=== PATIENT | female | born 1980 | race Caucasian/White ===

== ENCOUNTER 2023-01-15 20:01 | Emergency (ER) | payer SELFPAY ==
[~2023-01-15] VITALS: Ht 172.7 cm; Wt 83.0 kg
[2023-01-15] MEDS ORDERED: LIDOCAINE HCL 1% 20ML VIAL (Pyxis) INJ INFIL ONE (21:00)
[2023-01-15] MEDS ORDERED: TETANUS, DIPHTHERIA, PERTUSSIS VAC/PF 0.5ML (>10YR OLD) IM ONE (21:00)
[2023-01-15] MEDS ORDERED: IBUPROFEN 600MG TABLET PO ONE (22:15)
[2023-01-15 22:27] VITALS: BP 181/106
[2023-01-15] MEDS ORDERED: IBUP-2029 PO (22:30)
== END 2023-01-15 22:30 | disposition home or self-care (01) ==
LOC: ER 20:01
DX: S61.213A Laceration without foreign body of left middle finger without damage to nail, initial encounter (principal); W22.8XXA Striking against or struck by other objects, initial encounter; Y93.89 Activity, other specified; Y92.89 Other specified places as the place of occurrence of the external cause; Y99.8 Other external cause status
CPT/HCPCS: 12002; 90471; 90715; 99283; Z7610

== ENCOUNTER 2023-05-25 23:09 | Emergency (ER) | payer MEDICAID ==
[~2023-05-25] VITALS: Ht 177.8 cm; Wt 69.0 kg
[~2023-05-25 23:09] MED LIST: IBUP-2029 PO
[2023-05-25 23:19] VITALS: TEMP 97.7; O2SAT 97
[2023-05-26] VITALS: BP 109/70; PULSE 70; RESP 18
[2023-05-26] MEDS ORDERED: HYDROCODONE/ACETAMINOPHEN 5/325MG TABLET PO ONE
== END 2023-05-26 00:10 | disposition home or self-care (01) ==
LOC: ER 23:13
DX: M79.671 Pain in right foot (principal)
CPT/HCPCS: 99283

== ENCOUNTER 2023-08-01 16:36 | Emergency (ER) | payer SELFPAY ==
[~2023-08-01] VITALS: Ht 170.2 cm; Wt 100.0 kg
[2023-08-01 16:53] VITALS: TEMP 98.5; O2SAT 99
[2023-08-01] MEDS ORDERED: AZIT250T12 MT (20:38)
[2023-08-01] MEDS ORDERED: TOPUD MT (20:38)
[2023-08-01] MEDS ORDERED: IBUP-1523 MT (20:38)
[2023-08-01] MEDS ORDERED: ALBU90AE INH (20:38)
[2023-08-01] MEDS ORDERED: P50 MT (20:38)
[2023-08-01 21:22] VITALS: BP 145/93; PULSE 86; RESP 20
== END 2023-08-01 21:24 | disposition home or self-care (01) ==
LOC: ER 16:36
DX: J20.9 Acute bronchitis, unspecified (principal); Z20.822 Contact with and (suspected) exposure to COVID-19; Z98.890 Other specified postprocedural states
CPT/HCPCS: 99283

== ENCOUNTER 2023-08-21 00:09 | Emergency (ER) | payer SELFPAY ==
[~2023-08-21] VITALS: Ht 175.3 cm; Wt 86.0 kg
[~2023-08-21 00:09] MED LIST changes: +ALBU90AE INH; +AZIT250T12 MT; +IBUP-1523 MT; +P50 MT; +TOPUD MT
[2023-08-21 00:27] VITALS: BP 121/77; PULSE 93; RESP 21; TEMP 98.6; O2SAT 98
[2023-08-21 01:05] LABS: BASOPHILS % 2.5 % (0.0-2.0); EOSINOPHILS % 1.5 % (0.0-5.0); HEMATOCRIT. 37.8 % (36.0-48.0); HEMOGLOBIN. 12.5 g/dL (12.0-16.0); LYMPHOCYTES % 40.8 % (20.0-50.0); MEAN CORPUSCULAR HEMOGLOBIN 29.9 pg (28.0-32.0); MEAN CORPUSCULAR VOLUME 90.5 fL (81.0-99.0); MONOCYTES % 11.9 % (2.0-8.0); NEUTROPHILS % 43.3 % (40.0-76.0); PLATELET 281 x1000/uL (130-400); RED BLOOD CELL COUNT 4.18 mill/uL (4.2-5.4); RED CELL DISTRIBUTION WIDTH 13.2 % (11.6-14.6); WHITE BLOOD COUNT 6.9 x1000/uL (4.5-11.0)
[2023-08-21 01:26] LABS: CLARITY URINE CLOUDY (CLEAR); COLOR URINE YELLOW (YELLOW); GLUCOSE URINE NEGATIVE (NEGATIVE); KETONES URINE NEGATIVE (NEGATIVE); OCCULT BLOOD URINE NEGATIVE (NEGATIVE); PROTEIN URINE TRACE (NEGATIVE)
[2023-08-21 01:27] LABS: LEUKOCYTE ESTERASE URINE NEGATIVE (NEGATIVE); NITRITE URINE NEGATIVE (NEGATIVE)
[2023-08-21 01:34] LABS: SQUAMOUS EPITHELIAL CELL URINE 1+ /lpf (RARE/1+)
[2023-08-21 01:34] LABS: PARTIAL THROMBOPLASTIN TIME 25.8 sec (23.4-31.0); PROTHROMBIN TIME 10.9 sec (9.6-11.0)
[2023-08-21 01:35] LABS: AMORPHOUS SEDIMENT URINE 1+ /lpf; BACTERIA URINE NONE SEEN; RBC URINE 0-2 /hpf (0-2); WBC URINE NONE SEEN /hpf (0-2)
[2023-08-21 03:09] LABS: POTASSIUM 4.1 mEq/L (3.5-5.1); SODIUM 138 mEq/L (136-145)
[2023-08-21 03:10] LABS: CALCIUM 9.6 mg/dL (8.7-10.4); CHLORIDE 108 mEq/L (98-107); CREATININE 0.8 mg/dL (0.6-1.0); GLUCOSE 92 mg/dL (70-105); UREA NITROGEN BLOOD 10 mg/dL (9-23)
[2023-08-21 03:11] LABS: ALBUMIN 4.2 g/dL (3.2-4.8); BILIRUBIN TOTAL 0.7 mg/dL (0.1-1.0); PROTEIN TOTAL 6.5 g/dL (6.0-8.3)
[2023-08-21 03:12] LABS: ALANINE AMINOTRANSFERASE 10 IU/L (10-49); ASPARTATE AMINOTRANSFERASE 22 IU/L (<34); TROPONIN I HIGH SENSITIVITY 8 ng/L (3.0-34)
[2023-08-21] MEDS ORDERED: DOXY100T2 MT (04:58)
[2023-08-21] MEDS ORDERED: IBUP-2028 MT (04:58)
[2023-08-21 09:22] LABS: CARBON DIOXIDE 17 mEq/L (21-32)
== END 2023-08-21 08:04 | disposition home or self-care (01) ==
LOC: ER 00:09
DX: S63.601A Unspecified sprain of right thumb, initial encounter (principal); J18.9 Pneumonia, unspecified organism; Z79.899 Other long term (current) drug therapy; X58.XXXA Exposure to other specified factors, initial encounter; Y93.89 Activity, other specified; Y92.89 Other specified places as the place of occurrence of the external cause; Y99.8 Other external cause status
CPT/HCPCS: 36415; 71045; 73130; 80053; 81003; 81025; 84484; 85025; 93005; 99285

== ENCOUNTER 2023-12-10 13:53 | Emergency (ER) | payer MEDICAID ==
[~2023-12-10] VITALS: Ht 175.3 cm; Wt 86.0 kg
[~2023-12-10 13:53] MED LIST changes: +DOXY100T2 MT; +IBUP-2028 MT
[2023-12-10 13:59] VITALS: O2SAT 99
[2023-12-10] MEDS ORDERED: IBUP-2030 MT (15:08)
[2023-12-10] MEDS ORDERED: AMOX1TAB16 MT (15:08)
[2023-12-10] MEDS: AMOXICILLIN/POTASSIUM CLAVULANATE 875/125MG TAB PO ONE (15:15)
[2023-12-10] MEDS: HYDROCODONE/ACETAMINOPHEN 10/325MG TABLET PO ONE (15:15)
[2023-12-10] MEDS: KETOROLAC 60MG/2ML VIAL IM ONE (15:15)
[2023-12-10 15:32] VITALS: BP 109/69; PULSE 86; RESP 16; TEMP 97.8
[2023-12-10] MEDS: TETANUS, DIPHTHERIA, PERTUSSIS VAC/PF 0.5ML (>10YR OLD) IM ONE (15:45)
== END 2023-12-10 16:45 | disposition home or self-care (01) ==
LOC: ER 14:12
DX: S50.812A Abrasion of left forearm, initial encounter (principal); W55.01XA Bitten by cat, initial encounter; Y93.89 Activity, other specified; Y92.89 Other specified places as the place of occurrence of the external cause; Y99.8 Other external cause status
CPT/HCPCS: 99284; 90715; 90471; 96372; J1885; 99283

== ENCOUNTER 2024-07-27 15:09 | Emergency (ER) | payer MEDICAID ==
[~2024-07-27] VITALS: Ht 170.2 cm; Wt 85.0 kg
[~2024-07-27 15:09] MED LIST changes: +AMOX1TAB16 MT; +IBUP-2030 MT
[2024-07-27 15:55] VITALS: TEMP 98.2; O2SAT 97
[2024-07-27 18:50] VITALS: BP 131/70; PULSE 77; RESP 19; O2SAT 98
== END 2024-07-27 18:51 | disposition home or self-care (01) ==
LOC: ER 15:09
DX: M25.50 Pain in unspecified joint (principal); Z79.899 Other long term (current) drug therapy
CPT/HCPCS: 99281

== ENCOUNTER 2024-10-11 21:48 | Emergency (ER) | payer MEDICAID ==
[~2024-10-11] VITALS: Ht 175.3 cm; Wt 81.6 kg
[2024-10-11 21:59] VITALS: O2SAT 98
[2024-10-11 22:24] VITALS: BP 132/84; PULSE 79; RESP 14; TEMP 37; O2SAT 100
[2024-10-11] MEDS ORDERED: METH-653 MT (23:00)
[2024-10-11] MEDS ORDERED: IBUP-2029 PO (23:00)
== END 2024-10-12 00:21 | disposition home or self-care (01) ==
LOC: ER 21:48
DX: S33.5XXA Sprain of ligaments of lumbar spine, initial encounter (principal); Z79.1 Long term (current) use of non-steroidal anti-inflammatories (NSAID); Z79.899 Other long term (current) drug therapy; Y99.8 Other external cause status; Y93.89 Activity, other specified; Y92.89 Other specified places as the place of occurrence of the external cause; V49.88XA Car occupant (driver) (passenger) injured in other specified transport accidents, initial encounter
CPT/HCPCS: 99283

== ENCOUNTER 2024-11-29 01:39 | Emergency (ER) | payer MEDICAID ==
[~2024-11-29] VITALS: Ht 175.3 cm; Wt 83.0 kg
[~2024-11-29 01:39] MED LIST changes: +METH-653 MT
[2024-11-29 01:58] VITALS: O2SAT 98
[2024-11-29] MEDS ORDERED: CYCL10TA21 MT (03:37)
[2024-11-29] MEDS: CYCLOBENZAPRINE 10MG TABLET PO ONE (03:53)
[2024-11-29 03:57] VITALS: BP 121/78; PULSE 80; RESP 19; TEMP 36.6; O2SAT 98
== END 2024-11-29 03:58 | disposition home or self-care (01) ==
LOC: ER 01:51
DX: M25.562 Pain in left knee (principal); M25.511 Pain in right shoulder; Z79.899 Other long term (current) drug therapy; W19.XXXA Unspecified fall, initial encounter; Y93.89 Activity, other specified; Y92.89 Other specified places as the place of occurrence of the external cause; Y99.8 Other external cause status
CPT/HCPCS: 73030; 73562; 99284